=== PATIENT | male | born 1980 | race Caucasian/White ===

== ENCOUNTER 2016-08-01 16:47 | Emergency (ER) | payer SELFPAY ==
[2016-08-01 16:51] VITALS: RESP 16
[2016-08-01] MEDS ORDERED: PROPARACAINE 0.5% 15 ML OPHT DROP EACHEYE ONE (17:21)
[2016-08-01] MEDS ORDERED: FLUORESCEIN SODIUM 1 MG STRIP OP ONE (17:21)
--- NOTE | 2016-08-01 17:35 | EDPHY ---
H & P Smoking Status: Current every day smoker Time Seen by Provider: 08/01/16 17:19 HPI/ROS: CHIEF COMPLAINT: Foreign body sensation right eye HISTORY OF PRESENT ILLNESS: 35-year-old male with up-to-date tetanus works as a [employer] was installing a deck when he felt foreign body into his right eye. He rubbed his eye irrigated his eye however he continues to feel foreign body sensation. No visual acuity changes beyond photophobia. No pain with extraocular movements, no high speed projectiles PHYSICAL EXAM (Prior to examination, patient consented to physical exam, hands were washed and my usual and customary physical exam procedures followed) 1) GENERAL: Well-developed, well-nourished, alert and oriented. Appears to be in no acute distress. 2) HEAD: Normocephalic 3) HEENT: sclera anicteric 4) LUNGS: Breathing comfortably. 5)OCULAR EXAM: Visual Acuity: noted from Nurse's notes. Pupils:equal round and reactive to light EOMI Lids: no edema or swelling, lower eyelid everted no foreign body visualized. Upper eyelid everted and a small would like foreign body visualized in the upper eyelid. This is easily removed with a sterile Q-tip see procedure note. Skin: no proptosis, no periorbital erythema or swelling, no vesicles, no pain with extraocular movements. Conjunctivae: not injected, no discharge, negative Elba test. Cornea: exam with fluorescein shows there is an area of increased uptake consistent with corneal abrasion between the 12 and 1 o'clock position. Anterior chamber:normal, no hyphema or hypopyon (Pretty,D Swati) Constitutional: Initial Vital Signs Temperature (C) 36.5 C 08/01/16 16:49 Heart Rate 80 08/01/16 16:49 Respiratory Rate 16 08/01/16 16:49 Blood Pressure 132/94 H 08/01/16 16:49 O2 Sat (%) 97 08/01/16 16:49 O2 Delivery Mode Room Air Allergies/Adverse Reactions: haloperidol [From Haldol] Allergy (Verified 01/03/14 11:23) haloperidol lactate [From Haldol] Allergy (Verified 01/03/14 11:23) Home Medications: Medication Instructions Recorded Ryan 09/18/13 Budesonide [Rhinocort Aqua] 2 sprays EACHNARE DAILY #1 mdi 01/03/14 Ofloxacin 0.3% [Ocuflox 0.3%] 2 drops EACHEYE QID #1 opht.btl 08/01/16 oxyCODONE/APAP 5/325 [Percocet 1 tab PO Q6 #10 tab 08/01/16 5/325] MDM/Departure - MDM Procedures: Procedure: Foreign body removal from right eye The upper eyelid was everted and a visible would appearing foreign body was easily removed with a sterile Q-tip. No other foreign bodies visualized on further examination including the upper and lower eyelids. (Jazmyne Olsen) Medications Given: Discontinued Medications Fluorescein Sodium (Nxboc-B-Fugcv) 1 mg OP EDNOW ONE Stop: 08/01/16 17:22 Last Admin: 08/01/16 17:38 Dose: 1 mg Proparacaine HCl (Alcaine 0.5%) 1 drops EACHEYE ONCE ONE Stop: 08/01/16 17:22 Last Admin: 08/01/16 17:38 Dose: 1 drp ED Course/Re-evaluation: I did not see this patient while he was in the emergency department. However his care was discussed with the PA while the patient was in the department. Agree with treatment plan and management (Steve Noble) Patient has evidence of corneal abrasion right eye between the 12 and 1 o'clock position. Tetanus is up-to-date. He is started on Ocuflox drops, analgesia. Given usual customary analgesia precautions and instructions including not working on or using machinery. Doubt retained intraorbital foreign body. Doubt globe rupture. Recommend follow up with Ophthalmology. Given this referral information. (Jazmyne Olsen) - Depart Disposition: Home, Routine, Self-Care Clinical Impression: Corneal abrasion, right Qualifiers: Encounter type: initial encounter Qualified Code(s): S05.01XA - Injury of conjunctiva and corneal abrasion without foreign body, right eye, initial encounter Foreign body of right eye Qualifiers: Encounter type: initial encounter Qualified Code(s): T15.91XA - Foreign body on external eye, part unspecified, right eye, initial encounter Condition: Good Instructions: Corneal Abrasion (ED), Eye Foreign Body (ED) Additional Instructions: Return to the ER if you have change in vision, new or worsening pain or any other symptoms that concern you Prescriptions: Ofloxacin 0.3% [Ocuflox 0.3%] 2 drops EACHEYE QID #1 opht.btl oxyCODONE/APAP 5/325 [Percocet 5/325] 1 tab PO Q6 #10 tab Referrals: Steff Grajeda MD [Medical Doctor] - 1 day without fail (Dr. Steff Grajeda is a an all round logger)
[2016-08-01 18:27] VITALS: BP 132/54; PULSE 70; TEMP 97.2; O2SAT 98
== END 2016-08-01 18:27 | disposition home or self-care (01) ==
PROC: 08C0XZZ Extirpation of Matter from Right Eye, External Approach (ICD-10-PCS; principal; 2016-08-01)
DX: T15.91XA Foreign body on external eye, part unspecified, right eye, initial encounter (principal); S05.01XA Injury of conjunctiva and corneal abrasion without foreign body, right eye, initial encounter; F17.200 Nicotine dependence, unspecified, uncomplicated; X58.XXXA Exposure to other specified factors, initial encounter; Y92.69 Other specified industrial and construction area as the place of occurrence of the external cause; Y99.0 Civilian activity done for income or pay; Y93.89 Activity, other specified